=== PATIENT | male | born 1980 | race African-American/Black ===

== ENCOUNTER → 2017-07-02 | Outpatient (CLI) | payer BC ==
--- NOTE | ~2017-07-02 | TM ---
[id number] NAME: MARK PRINGLE MR#: [id number] PROCEDURE PERFORMED Treadmill stress test. DESCRIPTION Resting heart rate is 83. Resting blood pressure is 140/82 mmHg. Baseline EKG shows normal sinus rhythm. No significant ST-T wave changes. PROCEDURE The patient was made to exercise on a standard Harpreet protocol. Total exercise time is 9 minutes, completing stage 3 on a standard Harpreet protocol. Test stopped because target heart rate achieved. No complaints of chest pain or extreme shortness of breath. Maximal heart rate obtained is 184, which is 99% of maximum predicted heart rate. Maximal blood pressure obtained is 210/[address]-T wave changes suggestive of ischemia. No arrhythmias noted. CONCLUSION 1. Good exercise tolerance. 2. There is no clinical, hemodynamic or EKG evidence of ischemia at good workload (99% of maximum predicted heart rate, 10.1 METs). 3. Normal heart rate response. 4. Hypertensive blood pressure response with a peak blood pressure of 210/90 mmHg. 5. Normal regular treadmill stress test with hypertensive blood pressure response with exercise. Dictated by...
== END | disposition home or self-care (01) ==
LOC: CEKG 08:54
DX: R07.9 Chest pain, unspecified (principal); R53.83 Other fatigue
CPT/HCPCS: 93017